=== PATIENT | male | born 1985 | race American Indian/Alaskan Native ===

== ENCOUNTER 2021-04-23 14:25 | Emergency (ER) | payer OTHER ==
[2021-04-23 16:11] VITALS: BP 146/100
[2021-04-23] MEDS ORDERED: KETOROLAC 10 MG TAB PO ONE (16:44)
[2021-04-23] MEDS ORDERED: ONDANSETRON 4 MG ODT TAB PO ONE (16:44)
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
[2021-04-23 20:52] LABS: Mucus,Urine 3+ /HPF
[2021-04-23 21:24] LABS: Bilirubin,Urine Negative (Negative); Color,Urine Yellow (Yellow)
[2021-04-23 21:25] LABS: Blood,Urine Negative (Negative); Urobilinogen,Urine < 2.0 mg/dL (<2.0)
--- NOTE | 2021-04-23 21:40 | Emergency Department Report ---
ED Male HPI - General Chief complaint: Abdominal Pain Stated complaint: LOWER AB PAIN Time Seen by Provider: 04/23/21 16:19 Source: patient Mode of arrival: Ambulatory Limitations: No Limitations - History of Present Illness Initial comments: 35-year-old black male with no past medical history presents to the emergency department for evaluation of few day history of left flank pain along with persistent cough with some shortness of breath. He states that pain is 6 on a 10 scale and is worse with movement. He also complains of dysuria and interm ittent nausea. He denies fever and penile discharge. He states that he has not tried anything for the pain MD Complaint: dysuria -: Gradual, days(s) (2-3) Location: left flank Radiation: none Severity: moderate Severity scale (0 -10): 6 Quality: aching Consistency: intermittent Worsens with: urination, movement dysuria, nausea/vomiting. denies: discharge, swelling, urinary retention, blood in urine, fever, incontinence - Related Data Sexually active: Yes Previous Rx's Medication Instructions Recorded Last Taken Type Ciprofloxacin HCl [Ciprofloxacin 500 mg PO BID 5 Days #20 tab 04/23/21 Unknown Rx TAB] Ketorolac [Toradol] 10 mg PO Q6H PRN #12 tab 04/23/21 Unknown Rx Allergies Allergy/AdvReac Type Severity Reaction Status Date / Time No Known Allergies Allergy Unverified 04/23/21 16:07 ED Review of Systems ROS: Stated complaint: LOWER AB PAIN Other details as noted in HPI Comment: All other systems reviewed and negative Constitutional: denies: chills, diaphoresis, fever, malaise, weakness Eyes: denies: eye pain, eye discharge ENT: denies: ear pain, throat pain, dental pain, hearing loss, epistaxis Respiratory: denies: cough, shortness of breath, SOB with exertion, SOB at rest Cardiovascular: denies: chest pain, palpitations, dyspnea on exertion Endocrine: no symptoms reported Gastrointestinal: abdominal pain, nausea. denies: vomiting, diarrhea, hematemesis, melena, hematochezia Genitourinary: dysuria. denies: urgency, frequency, hematuria, discharge, testicular pain Musculoskeletal: back pain Skin: denies: rash, lesions Neurological: denies: headache, weakness, numbness, paresthesias Psychiatric: denies: anxiety, depression Hematological/Lymphatic: denies: easy bleeding, easy bruising ED Past Medical Hx - Medications Home Medications: Home Medications Medication Instructions Recorded Confirmed Last Taken Type Ciprofloxacin HCl [Ciprofloxacin 500 mg PO BID 5 Days #20 tab 04/23/21 Unknown Rx TAB] Ketorolac [Toradol] 10 mg PO Q6H PRN #12 tab 04/23/21 Unknown Rx ED Physical Exam - General Limitations: No Limitations General appearance: alert, in no apparent distress - Head Head exam: Present: atraumatic, normocephalic - Eye Eye exam: Present: normal appearance. Absent: scleral icterus, conjunctival injection - Neck Neck exam: Present: normal inspection. Absent: tenderness, lymphadenopathy - Respiratory Respiratory exam: Present: normal lung sounds bilaterally. Absent: respiratory distress, wheezes, rales, rhonchi, stridor, chest wall tenderness - Cardiovascular Cardiovascular Exam: Present: regular rate, normal heart sounds - GI/Abdominal GI/Abdominal exam: Present: soft, normal bowel sounds. Absent: distended, tenderness, guarding, rebound, rigid - Extremities Exam Extremities exam: Present: normal inspection - Back Exam Back exam: Present: normal inspection, tenderness (Left lower). Absent: CVA tenderness (R), CVA tenderness (L), paraspinal tenderness, vertebral tenderness - Neurological Exam Neurological exam: Present: alert, oriented X3 - Psychiatric Psychiatric exam: Present: normal affect, normal mood, depressed - Skin Skin exam: Present: warm, dry, intact, normal color ED Course Vital Signs 04/23/21 16:10 Temperature 98.1 F Pulse Rate 68 Respiratory 18 Rate Blood Pressure 146/100 O2 Sat by Pulse 97 Oximetry ED Medical Decision Making - Medical Decision Making 35-year-old black male with no past medical history presents to the emergency department for evaluation of few day history of left flank pain along with persistent cough with some shortness of breath. He states that pain is 6 on a 10 scale and is worse with movement. He also complains of dysuria and intermittent nausea. He denies fever and penile discharge. He states that he has not tried anything for the pain Pain only minimally improved after medication. Noted to have leukoastrocytes and WBCs in urine. Given symptoms and UA results, plan to treat patient with 5- day course of Cipro for urinary tract infection. Patient denies penile discharge and has no concern of sexually transmitted infection. Did not speak to patient after receiving UA results. Patient was not found in reassessment room or waiting room, so he did not get results or prescriptions. Critical care attestation.: If time is entered above; I have spent that time in minutes in the direct care of this critically ill patient, excluding procedure time. ED Disposition Clinical Impression: Flank pain UTI (urinary tract infection) Qualifiers: Urinary tract infection type: acute cystitis Hematuria presence: without hematuria Qualified Code(s): N30.00 - Acute cystitis without hematuria Disposition: HOME / SELF CARE / HOMELESS Is pt being admited?: No Does the pt Need Aspirin: No Condition: Stable Instructions: Urinary Tract Infection, Adult, [id number], Flank Pain, Adult, [id number] Additional Instructions: Take medication as prescribed. Drink plenty of noncaffeinated fluids. Follow- up with primary care provider for further evaluation. Return to the emergency department for worsening symptoms. Prescriptions: Ciprofloxacin HCl [Ciprofloxacin TAB] 500 mg PO BID 5 Days #20 tab Ketorolac [Toradol] 10 mg PO Q6H PRN #12 tab PRN Reason: Pain Referrals: PRIMARY CARE [Primary Care Provider] - 3-5 Days Time of Disposition: 21:40
== END 2021-04-23 21:49 | disposition home or self-care (01) ==
LOC: ED 14:25
DX: N39.0 Urinary tract infection, site not specified (principal); R10.9 Unspecified abdominal pain; R05.9 Cough, unspecified; R06.02 Shortness of breath
CPT/HCPCS: 81001; 99283; J3490; Q0162